=== PATIENT | male | born 1955 | race Two or more races ===

== ENCOUNTER 2017-07-23 19:35 | Emergency (ER) | payer OTHER ==
[2017-07-23 20:00] VITALS: RESP 16
[2017-07-23] MEDS ORDERED: LIDOCAINE 2% JELLY 20 ML (UROJECT) ONE (20:05)
[2017-07-23] MEDS: LIDOCAINE 2% JELLY 20 ML (UROJECT) UR ONE (20:10)
[2017-07-23 20:33] LABS: COLOR RED; LEUKOCYTE ESTERASE,URINE NEGATIVE (NEGATIVE); NITRITE,URINE NEGATIVE (NEGATIVE); PH,URINE 6.5 (5.0-7.5)
[2017-07-23 20:35] LABS: RBC,URINE >182 /hpf (0-3); WBC,URINE NONE SEEN /hpf (0-3)
--- NOTE | 2017-07-23 20:37 | EDPHY ---
H & P Smoking Status: Unknown if ever smoked Time Seen by Provider: 07/23/17 19:45 HPI/ROS: HPI Urinating blood. History of urinary retention. 62-year-old male, Citizen Of [place]-speaking only, by private vehicle with family. This patient was seen in the emergency department of [facility] 2 days ago for acute urinary retention. He had a Soler catheter placed at that time. He was seen again yesterday and had the Soler catheter removed. He reports that he started having gross hematuria last night and then stop urinating this morning. He has not urinated since earlier this morning. He complains of pain and distention in the suprapubic area. ROS: Constitutional: No fever, no chills. No weakness. Eyes: No discharge. No changes in vision. ENT: No sore throat. No nasal congestion or rhinorrhea. Respiratory: No cough. No shortness of breath. Cardiac: No chest pain, no palpitations. Gastrointestinal: As above, no vomiting, no diarrhea. Genitourinary: As above. Musculoskeletal: No back pain. No neck pain. No myalgias or arthralgias. Skin: No rashes. Neurological: No headache. No focal weakness or altered sensation. Past medical history: Type 2 diabetes. Social history: Nonsmoker. No alcohol. Here with his family. Physical Exam: General Appearance: Alert, he appears uncomfortable. This patient is responding to questions appropriately and in full sentences. This patient appears well-hydrated and well-nourished. Eyes: Pupils equal and round no pallor or injection. No lid edema, erythema or injection. Respiratory: There are no retractions, lungs are clear to auscultation with good air movement bilaterally. Cardiovascular: Regular rate and rhythm. No murmur. Gastrointestinal: Abdomen is soft with suprapubic distention and tenderness on palpation, no masses, bowel sounds normal. No focal tenderness at McBurney's point. No Moreno sign. : Small amount of blood around the meatus. Soler catheter in place. Testicles, normal lie, no masses. Neurological: Motor sensory function is grossly intact. Cranial nerves are normal. Gait is normal. Skin: Warm and dry, no rashes. Musculoskeletal: Neck is supple and nontender. Extremities are symmetrical. All joints range without pain or impingement. Psychiatric: No agitation. No depression. Database: EKG: Imaging: Procedures: Emergency department course: Soler catheter placed. Grossly bloody urine immediately followed by stoppage. Nursing staff will attempt to flush. IV placed. Urinalysis shows blood only. No evidence of infection. His kidneys are functioning well. He does have a significant microcytic anemia. Results of all these test were discussed with the patient, his son and granddaughter at 9: 45 p.m.. His granddaughter has been translating for us. The patient is comfortable at this time. He has about 650 cc of bloody urine in his collection bag. He has been given a L of normal saline and his urine in the Soler to be is clearing. Plan will be to have the patient follow up with Urology for his acute urinary retention and and hematuria. I will also have him follow up with his primary care physician at [facility] seen a for evaluation of his likely iron deficiency anemia and management of that. The patient, son and granddaughter understand this follow-up plan. Return to emergency department precautions were reviewed with all of them. All of their questions were answered. 10:00 p.m., spoke with on-call urologist Dr. Adair Love. The patient's case was discussed in detail. He will see this patient on follow-up in his office. He requested that we get a CT urogram here in the emergency department. I spoke with Dr. Chuy Chan who is the radiologist on duty [facility]. He stated that we would be able to get this study done here at the [facility]. He stated however that he would likely not have this study read for a couple of hours. 11:00 p.m., waiting on CT urogram to be completed. Care turned over to Dr. Moura. Expected disposition is discharged to home with follow-up instructions as noted after completion of CT urogram. Differential Diagnosis: The differential diagnosis on this patient includes but is not limited to acute urinary retention, cystitis, urinary tract infection, malignancy. This represents a partial list of diagnoses considered. These considerations are based on history, physical exam, past history, reassessment and diagnostic testing. (Oniel Miner) Constitutional: Initial Vital Signs Temperature (C) 36.3 C 07/23/17 19:46 Heart Rate 98 07/23/17 19:46 Respiratory Rate 16 07/23/17 19:46 Blood Pressure 171/98 H 07/23/17 19:46 O2 Sat (%) 94 07/23/17 19:46 O2 Delivery Mode Room Air Allergies/Adverse Reactions: No Known Allergies Allergy (Verified 07/24/17 11:12) Medical Decision Making Other Provider: Mr. Gamino was signed out to me at [address] urogram completion. Verbal report by Dr. Chan reveals a bladder full of clot. Unable to visualize any potential underlying pathology. Kidney cysts most likely benign. Enlarged prostate. No obstruction. This information was relayed to the patient and his family. He understands he is to follow up with urology in 1 - 2 days. [id number] RN informs me the catheter is blocked again after being clamped for the CT urogram. Will switch out catheter. (Graciela Moura) - Data Points Laboratory Results: Laboratory Results 07/23/17 20:50 07/23/17 20:50 Medications Given: Discontinued Medications Sodium Chloride (Ns) 1,000 mls @ 0 mls/hr IV EDNOW ONE; Wide Open PRN Reason: Protocol Stop: 07/23/17 21:07 Last Admin: 07/23/17 20:55 Dose: 1,000 mls Lidocaine (Uroject Lidocaine 2% Jelly) 20 ml UR EDNOW ONE Stop: 07/23/17 20:17 Last Admin: 07/24/17 00:06 Dose: 20 ml Lidocaine (Uroject Lidocaine 2% Jelly) 20 ml UR EDNOW ONE Stop: 07/23/17 23:55 Last Admin: 07/24/17 00:43 Dose: Not Given Departure - Departure Disposition: Home, Routine, Self-Care Clinical Impression: Acute urinary retention, Hematuria, Anemia Condition: Good Instructions: Urinary Retention in Men (ED), Soler Catheter Placement and Care (ED), Iron Deficiency Anemia (ED) Additional Instructions: Read and follow provided instructions. Follow-up with your primary care physician at [facility] seen at in 1-2 days for re-evaluation. Your to have your blood test, the CBC, repeated at this time. I believe you need to be treated for iron deficiency anemia. Regarding the Soler catheter and the blood in her urine. Your to follow up with Dr. Adair Love of the Urology service in his office in the next 1-2 days. He will have access to the studies that we have done here poppy. Call his office in the morning for follow-up appointment time. Return to the emergency department for worsening symptoms, bleeding, pain, fever or other serious concerns. ------- Tonya y sigua las instrucciones provedas. Fred preston yordan de seguimiento con jaramillo [facility]2 wren para ser evaluado de nuevo. y para que revisen anlisis de mike otra vez. Creo que necesita tratamiento por anemia relacionado a falta de herbie. Sobre la sonda y la mike en jaramillo orina, necesita hacer preston yordan de seguimiento con Dr.John Love, de servicio urlogo en jaramillo oficina en los prximos 1-2 wren. l va tener acceso a los estudios que fueron hechos hoy. Llame jaramillo oficina maana en la maana para hacer preston yordan. Regrese a la malathi de emergencias si tiene empeoramiento de sntomas, sangrado, dolor, fiebre, o otras preocupaciones serias. Referrals: [facility] [Primary Care Provider] - As per Instructions Adair Love MD [Medical Doctor] - As per Instructions Stand Alone Forms: Work Excuse Print Language: Citizen Of [place]
[2017-07-23 20:57] LABS: ABSOLUTE IMMATURE GRANULOCYTES 0.07 10^3/uL (0.00-0.10); ABSOLUTE NRBC COUNT 0.02 10^3/uL (0-0.01); ADD DIFF? NO; ADD MORPH? YES; ADD SCAN? NO; ATYPICAL LYMPHOCYTE FLAG 0 (0-99); FRAGMENT RBC FLAG 60 (0-99); HEMATOCRIT 31.8 % (40.0-51.0); HEMOGLOBIN 9.1 g/dL (13.7-17.5); LEFT SHIFT FLG 0 (0-99); LIPEMIA HEMOLYSIS FLAG 70 (0-99); MEAN CELL HEMOGLOBIN 16.4 pg (27.9-34.1); MEAN PLATELET VOLUME 8.8 fL (8.7-11.7); NRBC-AUTO% 0.3 % (0.0-0.2); PLATELET CLUMPS FLAG 10 (0-99); PLATELET COUNT 412 10^3/uL (150-400); RED BLOOD CELL COUNT 5.55 10^6/uL (4.40-6.38)
[2017-07-23 20:58] LABS: MEAN CELL HEMOGLOBIN CONCENTR. 28.6 g/dL (32.4-36.7); MEAN CELL VOLUME 57.3 fL (81.5-99.8); RED CELL DISTRIBUTION WIDTH 21.4 % (11.5-15.2)
[2017-07-23 21:06] LABS: APTT 24.7 SEC (23.0-38.0); INR 1.02 (0.83-1.16); PROTIME(PATIENT) 13.3 SEC (12.0-15.0)
[2017-07-23] MEDS ORDERED: NS 1,000 ML IV ONE (21:06)
[2017-07-23 21:07] LABS: PLATELET ESTIMATE INCREASED (ADEQ)
[2017-07-23 21:08] LABS: HYPOCHROMIA 3+; MACROCYTES 1+; MICROCYTES 3+; POLYCHROMASIA 1+; TARGET CELLS 1+
[2017-07-23 21:09] LABS: ANION GAP 16 mEq/L (8-16); CALCIUM 8.9 mg/dL (8.5-10.4); CARBON DIOXIDE 25 mEq/l (22-31); CHLORIDE 100 mEq/L (97-110); CREATININE 0.7 mg/dL (0.7-1.3); GLOMERULAR FILTRATION RATE > 60; GLUCOSE 121 mg/dL (70-100); POTASSIUM 3.7 mEq/L (3.5-5.2); SODIUM 141 mEq/L (134-144)
[2017-07-23] MEDS ORDERED: IOPAMIDOL (ISOVUE-300) 100 ML BTL ONE (22:25)
[2017-07-23 23:18] VITALS: BP 138/100; PULSE 68; TEMP 98.1; O2SAT 96
[2017-07-23] MEDS ORDERED: LIDOCAINE 2% JELLY 20 ML (UROJECT) UR ONE (23:54)
[2017-07-24] MEDS: LIDOCAINE 2% JELLY 20 ML (UROJECT) UR ONE (00:06)
== END 2017-07-24 00:40 | disposition home or self-care (01) ==
LOC: CED 19:35
PROC: 0T9B70Z Drainage of Bladder with Drainage Device, Via Natural or Artificial Opening (ICD-10-PCS; principal; 2017-07-23)
DX: R33.9 Retention of urine, unspecified (principal); D64.9 Anemia, unspecified; R31.9 Hematuria, unspecified; E11.9 Type 2 diabetes mellitus without complications; E86.9 Volume depletion, unspecified
CPT/HCPCS: 74178-PO; 80048-PO; 81003-PO; 81015-PO; 85025-PO; 85610-PO; 85730-PO; Q9967

== ENCOUNTER 2017-07-24 11:00 | Emergency (ER) | payer OTHER ==
--- NOTE | 2017-07-24 11:43 | EDPHY ---
HPI/HX/ROS/PE/MDM Narrative: CHIEF COMPLAINT: Hematuria, urine retention after catheter HPI: This patient is a 63 y/o male complaining of hematuria and inability to urinate. Friday, five days ago, he had about seven beers to celebrate his birthday, and discovered around 4am that he could not pass urine. He was evaluated at [facility] at that time and had a catheter placed. He had the catheter removed at [facility] on Friday. That evening he noted gross hematuria. Yesterday, he presented to the [facility] for recurrent urinary retention, and had another catheter placed. CT urogram revealed clots in the bladder and enlarged prostate, no obstruction. Since that time, he has had only small amounts of hematuria drain from the catheter and has had worsening pain in his suprapubic region and penis. The patient has noted blood coming from around the catheter as well. He had a similar episode of urinary retention several years ago, but this was resolved without complication following catheter placement. The patient denies fever, vomiting, diarrhea, or other associated symptoms. HPI primarily obtained via pipefitter at bedside. REVIEW OF SYSTEMS: Aside from elements discussed in the HPI, a comprehensive 10-point review of systems was reviewed and is negative. PMH: Pre-diabetic. Cholecystectomy. SOCIAL HISTORY: Singaporean-speaking. Lives in [place]. . PHYSICAL EXAM: General:Patient is alert, in no acute distress. ENT:Eyes are normal to inspection. ENT inspection normal. Neck: Normal inspection. Full range of motion. Respiratory:No respiratory distress. Breath sounds normal bilaterally. Cardiovascular: Regular rate and rhythm. Strong peripheral pulses. Normal cap refill. Abdomen: Suprapubic distention. There are no peritoneal signs. There are normal bowel sounds. Genitourinary: Rodriguez catheter in place Back: Normal to inspection. No tenderness to palpation. Skin: Normal color. No rash. Warm and dry. Extremities: Normal appearance. Full range of motion. Neuro: Oriented x3. Normal motor function. Normal sensory function. ED Course: This patient is a 62 year old male complaining of gross hematuria and urinary retention ongoing despite two catheter placements in the last five days. Exam reveals Rodriguez catheter in place, suprapubic tenderness and distention. Plan for bladder scan, placement of three-way catheter. IV established. Plan for labs including CBC, BMP, coag. Bladder scan reveals 474mL of fluid. 12:30 The patient complains of considerable pain. Plan to administer 100mcg IV Fentanyl for pain relief. Patient continues to experience pain after Fentanyl administration. Plan to administer 1mg IV Dilaudid. 14:00 Rodriguez irrigation performed with 2000mL normal saline. Dark red urine returned. Plan to administer 1L IV NS for hydration. 14:40 Reassessed patient. He is feeling better, and urine is draining freely from his catheter. He is comfortable with discharge home. He will follow up with urology for further evaluation. Return precautions discussed. He and his family are comfortable with this plan. MDM: This patient presents with malfunctioning rodriguez, likely secondary to blood clot from hematuria, causing acute urinary retention. A 3-way was placed and bladder irrigation was peformed, resulting in resumption of normal flow and resolution of symptoms. Patient already has a urology referral in place. He is aware this condition may recur and he will monitor hematuria and urine output closely, and return to the ED if necessary. - Data Points Laboratory Results: Laboratory Results 07/24/17 12:56 07/24/17 12:56 07/24/17 07/24/17 07/24/17 12:56 12:56 12:56 WBC 12.18 10^3/uL H 10^3/uL (3.80-9.50) RBC 5.11 10^6/uL 10^6/uL (4.40-6.38) Hgb 8.7 g/dL L g/dL (13.7-17.5) Hct 29.5 % L % (40.0-51.0) MCV 57.7 fL L fL (81.5-99.8) MCH 17.0 pg L pg (27.9-34.1) MCHC 29.5 g/dL L g/dL (32.4-36.7) RDW 21.5 % H % (11.5-15.2) Plt Count 433 10^3/uL H 10^3/uL (150-400) MPV 9.3 fL fL (8.7-11.7) Neut % (Auto) 76.7 % H % (39.3-74.2) Lymph % (Auto) 14.1 % L % (15.0-45.0) [place] % (Auto) 7.9 % % (4.5-13.0) Eos % (Auto) 0.2 % L % (0.6-7.6) Baso % (Auto) 0.3 % % (0.3-1.7) Nucleat RBC Rel Count 0.2 % % (0.0-0.2) Absolute Neuts (auto) 9.33 10^3/uL H 10^3/uL (1.70-6.50) Absolute Lymphs (auto) 1.72 10^3/uL 10^3/uL (1.00-3.00) Absolute Monos (auto) 0.96 10^3/uL H 10^3/uL (0.30-0.80) Absolute Eos (auto) 0.03 10^3/uL 10^3/uL (0.03-0.40) Absolute Basos (auto) 0.04 10^3/uL 10^3/uL (0.02-0.10) Absolute Nucleated RBC 0.03 10^3/uL H 10^3/uL (0-0.01) Immature Gran % 0.8 % % (0.0-1.1) Immature Gran # 0.10 10^3/uL 10^3/uL (0.00-0.10) Platelet Estimate INCREASED H (ADEQ) Polychromasia 1+ H Hypochromasia 3+ H Microcytic Cells 3+ H Target Cells 1+ H Oval Macrocytes 1+ H Elliptocytes 1+ H Smear Review By Pending PT 13.9 SEC SEC (12.0-15.0) INR 1.05 (0.83-1.16) APTT 21.7 SEC L SEC (23.0-38.0) Sodium 142 mEq/L mEq/L (134-144) Potassium 4.3 mEq/L mEq/L (3.5-5.2) Chloride 104 mEq/L mEq/L (97-110) Carbon Dioxide 22 mEq/l mEq/l (22-31) Anion Gap 16 mEq/L mEq/L (8-16) BUN 14 mg/dL mg/dL (7-23) Creatinine 0.8 mg/dL mg/dL (0.7-1.3) Estimated GFR > 60 Glucose 134 mg/dL H mg/dL (70-100) Calcium 9.7 mg/dL mg/dL (8.5-10.4) Medications Given: Discontinued Medications Fentanyl (Sublimaze) 100 mcg IVP EDNOW ONE Stop: 07/24/17 12:35 Last Admin: 07/24/17 13:34 Dose: Not Given Hydromorphone HCl (Dilaudid) 1 mg IVP EDNOW ONE Stop: 07/24/17 12:52 Last Admin: 07/24/17 12:52 Dose: 1 mg Sodium Chloride (Ns) 1,000 mls @ 0 mls/hr IV EDNOW ONE; Wide Open PRN Reason: Protocol Stop: 07/24/17 14:28 Last Admin: 07/24/17 14:28 Dose: 1,000 mls General Time Seen by Provider: 07/24/17 11:41 Initial Vital Signs: Initial Vital Signs Temperature (C) 36.8 C 07/24/17 11:13 Heart Rate 76 07/24/17 11:13 Respiratory Rate 16 07/24/17 11:13 Blood Pressure 124/69 H 07/24/17 11:13 O2 Sat (%) 95 07/24/17 11:13 O2 Delivery Mode Room Air O2 (L/minute) 3 Allergies/Adverse Reactions: No Known Allergies Allergy (Verified 07/24/17 11:12) Home Medications: Medication Instructions Recorded Cephalexin [Keflex (RX)] 500 mg PO TID #30 cap 07/27/17 Lidocaine 2% Jelly [Lidocaine 2% 5 kandy MM 5XD #30 jelly 07/27/17 Jelly (*)] Departure - Departure Disposition: Home, Routine, Self-Care Clinical Impression: Acute urinary retention, Hematuria Condition: Good Instructions: Urinary Retention in Men (ED), Hematuria (ED) Additional Instructions: 1. Follow up urology this week for further evaluation. Call today for an appointment. 2. Return to the emergency department for recurrent inability to urinate, worsening pain, fever, or other worsening of condition. 1. Fred preston yordan de seguimiento con el urologo esta semana. Llame ahora. 2. Regrese a la malathi de emergencia si no puede orinar, si aumenta el dolor, si tiene fiebre, o si empeora jaramillo condicion. Referrals: [facility] [Other] - As per Instructions Adair Love MD [Medical Doctor] - As per Instructions Stand Alone Forms: Work Excuse Print Language: Singaporean Report Scribed for: Josué Mathews Report Scribed by: Krystal Mendoza Date of Report: 07/24/17 Time of Report: 11:42 Physician Review and Approval Statement: Portions of this note were transcribed by an ED scribe. I personally performed the history, physical exam, and medical decision making; and confirm the accuracy of the information in the transcribed note.
[2017-07-24] MEDS ORDERED: fentaNYL 100 MCG/2 ML INJ IVP ONE (12:34)
[2017-07-24] MEDS ORDERED: HYDROmorphONE/DILAUDID 1 MG/ML INJ ONE (12:34)
[2017-07-24] MEDS ORDERED: LIDOCAINE 2% JELLY 20 ML (UROJECT) ONE (12:36)
[2017-07-24] MEDS ORDERED: HYDROmorphONE/DILAUDID 1 MG/ML INJ IVP ONE (12:51)
[2017-07-24 13:04] LABS: % IMMATURE GRANULYOCYTES 0.8 % (0.0-1.1); ABSOLUTE NRBC COUNT 0.03 10^3/uL (0-0.01); ADD DIFF? NO; ADD MORPH? YES; ADD SCAN? NO; ATYPICAL LYMPHOCYTE FLAG 0 (0-99); FRAGMENT RBC FLAG 70 (0-99); HEMATOCRIT 29.5 % (40.0-51.0); HEMOGLOBIN 8.7 g/dL (13.7-17.5); LEFT SHIFT FLG 0 (0-99); LIPEMIA HEMOLYSIS FLAG 70 (0-99); MEAN CELL HEMOGLOBIN CONCENTR. 29.5 g/dL (32.4-36.7); MEAN PLATELET VOLUME 9.3 fL (8.7-11.7); NRBC-AUTO% 0.2 % (0.0-0.2); PLATELET CLUMPS FLAG 10 (0-99); PLATELET COUNT 433 10^3/uL (150-400); RED BLOOD CELL COUNT 5.11 10^6/uL (4.40-6.38)
[2017-07-24 13:05] LABS: MEAN CELL VOLUME 57.7 fL (81.5-99.8); RED CELL DISTRIBUTION WIDTH 21.5 % (11.5-15.2)
[2017-07-24 13:17] LABS: ANION GAP 16 mEq/L (8-16); CALCIUM 9.7 mg/dL (8.5-10.4); CARBON DIOXIDE 22 mEq/l (22-31); CHLORIDE 104 mEq/L (97-110); CREATININE 0.8 mg/dL (0.7-1.3); GLOMERULAR FILTRATION RATE > 60; GLUCOSE 134 mg/dL (70-100); POTASSIUM 4.3 mEq/L (3.5-5.2); SODIUM 142 mEq/L (134-144)
[2017-07-24 13:19] LABS: INR 1.05 (0.83-1.16); PROTIME(PATIENT) 13.9 SEC (12.0-15.0)
[2017-07-24 13:20] LABS: APTT 21.7 SEC (23.0-38.0)
[2017-07-24 13:25] LABS: ELLIPTOCYTES 1+; HYPOCHROMIA 3+; MACROCYTES 1+; MICROCYTES 3+; PLATELET ESTIMATE INCREASED (ADEQ); POLYCHROMASIA 1+; TARGET CELLS 1+
[2017-07-24] MEDS ORDERED: NS 1,000 ML IV ONE (14:27)
[2017-07-24 16:04] VITALS: BP 143/63; PULSE 80; RESP 14; TEMP 98.8; O2SAT 93
== END 2017-07-24 16:15 | disposition home or self-care (01) ==
DX: R31.9 Hematuria, unspecified (principal); R33.9 Retention of urine, unspecified; E86.9 Volume depletion, unspecified
CPT/HCPCS: 96374; J1170

== ENCOUNTER 2017-07-27 11:36 | Emergency (ER) | payer OTHER ==
[2017-07-27 11:43] VITALS: TEMP 97.9; O2SAT 93
[2017-07-27] MEDS ORDERED: LIDOCAINE 2% JELLY 20 ML (UROJECT) UR ONE (12:03)
--- NOTE | 2017-07-27 12:03 | EDPHY ---
H & P Stated Complaint: Had rodriguez placed on ;now its bothering him;urology appt on Fri Time Seen by Provider: 07/27/17 12:03 - Personal History Current Tetanus Diphtheria and Acellular Pertussis (TDAP): Unsure - Medical/Surgical History Hx Asthma: No Hx Chronic Respiratory Disease: No Hx Diabetes: Yes Hx Cardiac Disease: No Hx Renal Disease: No Hx Cirrhosis: No Hx Alcoholism: No Hx HIV/AIDS: No Hx Splenectomy or Spleen Trauma: No Other PMH: Med hx pre diabetes, jordan. Surg-abd surg - Social History Smoking Status: Never smoked Constitutional: Initial Vital Signs Temperature (C) 36.6 C 07/27/17 11:40 Heart Rate 84 07/27/17 11:40 Respiratory Rate 18 07/27/17 11:40 Blood Pressure 127/74 H 07/27/17 11:40 O2 Sat (%) 93 07/27/17 11:40 O2 Delivery Mode Room Air Allergies/Adverse Reactions: No Known Allergies Allergy (Verified 07/24/17 11:12) Home Medications: Medication Instructions Recorded Cephalexin [Keflex (RX)] 500 mg PO TID #30 cap 07/27/17 Lidocaine 2% Jelly [Lidocaine 2% 5 kadny MM 5XD #30 jelly 07/27/17 Jelly (*)] Medical Decision Making ED Course/Re-evaluation: CHIEF COMPLAINT: Urethra pain HISTORY OF PRESENT ILLNESS: The patient is a 62-year-old male presenting with urethra pain from Rodriguez catheter. The patient was here 07/24/17 with urinary retention. He had Rodriguez catheter placed and was found to have gross hematuria. CT urogram revealed clots in the bladder and enlarged prostate, no obstruction. The patient returns today because of urethra pain from repeat catheterization. The patient denies fever, vomiting, diarrhea, or other associated symptoms. REVIEW OF SYSTEMS: A 10 point review of systems was performed and is negative with the exception of the elements mentioned in the history of present illness. PHYSICAL EXAM: HR, BP, O2 Sat, RR. Temp noted General Appearance: Alert, well hydrated, appropriate, and non-toxic appearing. Head: Atraumatic without scalp tenderness or obvious injury Eyes: Pupils equal, round, reactive to light and accommodation, EOMI, no trauma , no injection. Respiratory: No retractions, no distress, no wheezes, and no accessory muscle use. Lungs are clear to auscultation bilaterally. Cardiovascular: Regular rate and rhythm, no murmurs, rubs, or gallops. Bilateral carotid, radial, dorsalis pedis, and posterior tibial pulses intact. Good capillary refill all extremities. Gastrointestinal: Abdomen is soft, nontender, non-distended, no masses, no rebound, no guarding, no peritoneal signs. Genitourinary: Erythema around the penis. Rodriguez catheter in place. Musculoskeletal: Normal active ROM of all extremities, atraumatic. Neurological: Alert, appropriate, and interactive. The patient has normal DTRs and non-focal cranial nerves, motor, sensory, and cerebellar exam. Skin: No rashes, good turgor, no nodules on palpation. Past medical history: Urinary retention, Pre-diabetic, Past surgical history: Cholecystectomy. Family history: Noncontributory. Social history: Family at bedside. DIAGNOSTICS/PROCEDURES/CRITICAL CARE TIME: DIFFERENTIAL DIAGNOSIS: MEDICAL DECISION MAKING: Patient returns today because of pain at the urethra related to the Rodriguez catheter. The patient has had 2 catheters placed over the past 1.5 weeks. The catheter was difficult to insert initially according to the report. The patient returns today because repeat catheterization has caused a significant amount of pain to his penis. The patient is afebrile. He has not been taking his Flomax or thyroid medication. I recommend a Lidocaine- barrier cream to apply around the urethra. The patient has an appointment with a urologist on Friday. We will keep the current Rodriguez catheter in place. His lab work is normal. I started the patient on Keflex. - Data Points Laboratory Results: Laboratory Results 07/27/17 12:30 07/27/17 12:30 07/27/17 07/27/17 07/27/17 12:40 12:30 12:30 WBC 11.84 10^3/uL H 10^3/uL (3.80-9.50) RBC 4.58 10^6/uL 10^6/uL (4.40-6.38) Hgb 7.7 g/dL L g/dL (13.7-17.5) Hct 26.8 % L % (40.0-51.0) MCV 58.5 fL L fL (81.5-99.8) MCH 16.8 pg L pg (27.9-34.1) MCHC 28.7 g/dL L g/dL (32.4-36.7) RDW 21.5 % H % (11.5-15.2) Plt Count 286 10^3/uL D 10^3/uL (150-400) MPV 9.0 fL fL (8.7-11.7) Neut % (Auto) 76.9 % H % (39.3-74.2) Lymph % (Auto) 11.3 % L % (15.0-45.0) [place] % (Auto) 9.2 % % (4.5-13.0) Eos % (Auto) 1.5 % % (0.6-7.6) Baso % (Auto) 0.3 % % (0.3-1.7) Nucleat RBC Rel Count 0.5 % H % (0.0-0.2) Absolute Neuts (auto) 9.10 10^3/uL H 10^3/uL (1.70-6.50) Absolute Lymphs (auto) 1.34 10^3/uL 10^3/uL (1.00-3.00) Absolute Monos (auto) 1.09 10^3/uL H 10^3/uL (0.30-0.80) Absolute Eos (auto) 0.18 10^3/uL 10^3/uL (0.03-0.40) Absolute Basos (auto) 0.03 10^3/uL 10^3/uL (0.02-0.10) Absolute Nucleated RBC 0.06 10^3/uL H 10^3/uL (0-0.01) Immature Gran % 0.8 % % (0.0-1.1) Immature Gran # 0.10 10^3/uL 10^3/uL (0.00-0.10) Platelet Estimate Pending Smear Review By Pending Sodium 141 mEq/L mEq/L (134-144) Potassium 4.4 mEq/L mEq/L (3.5-5.2) Chloride 104 mEq/L mEq/L (97-110) Carbon Dioxide 23 mEq/l mEq/l (22-31) Anion Gap 14 mEq/L mEq/L (8-16) BUN 12 mg/dL mg/dL (7-23) Creatinine 0.7 mg/dL mg/dL (0.7-1.3) Estimated GFR > 60 Glucose 104 mg/dL H mg/dL (70-100) Calcium 8.5 mg/dL mg/dL (8.5-10.4) Total Bilirubin 0.5 mg/dL mg/dL (0.1-1.4) Conjugated Bilirubin 0.3 mg/dL mg/dL (0.0-0.5) Unconjugated Bilirubin 0.2 mg/dL mg/dL (0.0-1.1) AST 32 IU/L IU/L (17-59) ALT 35 IU/L IU/L (21-72) Alkaline Phosphatase 54 IU/L IU/L (38-126) Total Protein 7.4 g/dL g/dL (6.3-8.2) Albumin 4.0 g/dL g/dL (3.5-5.0) Lipase 102 IU/L IU/L (23-300) Urine Color Pending Urine Appearance Pending Urine pH Pending Ur Specific [place] Pending Urine Protein Pending Urine Ketones Pending Urine Blood Pending Urine Nitrate Pending Urine Bilirubin Pending Urine Urobilinogen Pending Ur Leukocyte Esterase Pending Urine RBC Pending Urine WBC Pending Ur Epithelial Cells Pending Urine Glucose Pending Medications Given: Discontinued Medications Lidocaine (Uroject Lidocaine 2% Jelly) 20 ml UR EDNOW ONE Stop: 07/27/17 12:04 Last Admin: 07/27/17 12:11 Dose: 20 ml Departure - Departure Disposition: Home, Routine, Self-Care Clinical Impression: Urethral pain Hematuria Qualifiers: Hematuria type: gross Qualified Code(s): R31.0 - Gross hematuria Condition: Good Instructions: Hematuria (ED), Rodriguez Catheter Placement and Care (ED) Additional Instructions: Take full course of antibiotics as directed. Resume taking your Flomax and thyroid medication. I recommend you buy Lidocaine jelly and apply to the urethra. Follow up with your urologist as scheduled. Referrals: [facility] [Other] - As per Instructions Prescriptions: Cephalexin [Keflex (RX)] 500 mg PO TID #30 cap Lidocaine 2% Jelly [Lidocaine 2% Jelly (*)] 5 kandy MM 5XD #30 jelly Print Language: Maltese Report Scribed for: Adán A Kelly Report Scribed by: Vicki Cross Date of Report: 07/27/17 Time of Report: 13:03
[2017-07-27 12:44] LABS: PLATELET COUNT 286 10^3/uL (150-400)
[2017-07-27 13:12] VITALS: BP 136/66; PULSE 83; RESP 16
== END 2017-07-27 13:36 | disposition home or self-care (01) ==
DX: N36.8 Other specified disorders of urethra (principal); R31.0 Gross hematuria; E11.9 Type 2 diabetes mellitus without complications